=== PATIENT | male | born 2000 | race Caucasian/White ===

== ENCOUNTER 2021-01-10 05:48 | Emergency (ER) | payer MEDICAID ==
[~2021-01-10] VITALS: Ht 167.6 cm; Wt 64.0 kg
[2021-01-10 05:57] VITALS: BP 140/93
[2021-01-10] MEDS ORDERED: KETOROLAC 30 MG/ML VIAL IVP ONE (06:10)
[2021-01-10] MEDS ORDERED: NACL 0.9% 500 ML IV ONE (06:10)
--- NOTE | 2021-01-10 06:15 | NUR ---
PATIENT PRESENTS TO ED WITH L ELBOW PAIN . PT STATES 10/10 PAIN . DENIES N/V/D; SKIN IS PINK/WARM/DRY; AAOX4 WITH EVEN AND STEADY GAIT; LUNGS CLEAR BL; HR EVEN AND REGULAR; PT DENIES ANY FEVER, CP, SOB, OR COUGH AT THIS TIME; AT THIS TIME; VSS; PATIENT POSITIONED FOR COMFORT; HOB ELEVATED; BEDRAILS UP X2; BED DOWN. ER MD MADE AWARE OF PT STATUS. PMH: ASTHMA, HYPERTENSION, KIDNEY PROBLEMS NKA
[2021-01-10] MEDS ORDERED: LIDOCAINE 2% 1000 MG/50 ML VIAL INJ ONE (06:20)
[2021-01-10] MEDS ORDERED: VANCOMYCIN 1,000 MG in DEXTROSE 5% 250 ML IV ONE (06:25)
[2021-01-10] MEDS ORDERED: SULF-59 PO (06:37)
[2021-01-10] MEDS ORDERED: CEPH500C16 PO (06:37)
[2021-01-10] MEDS ORDERED: IBUP-2213 PO (06:37)
--- NOTE | 2021-01-10 07:15 | NUR ---
GIVEN REPORT TO ZHANNA MILES, FOR CONTINUITY OF CARE
--- NOTE | 2021-01-10 07:17 | NUR ---
REPORT RECEIVED FROM GINGER STEPHENS. TRANSFER OF CARE AT THIS TIME.
[2021-01-10] MEDS ORDERED: VANCOMYCIN 1,000 MG VIAL ONE (07:22)
--- NOTE | 2021-01-10 07:30 | NUR ---
PROVIDER AT BEDSIDE PERFORMING I&D.
--- NOTE | 2021-01-10 08:20 | NUR ---
PT RESTING IN LOWEST POSITION BED IN LOCKED POSITION, IN NO ACUTE DISTRESS.
--- NOTE | 2021-01-10 09:00 | NUR ---
EMT AT BEDSIDE PROVIDING WOUND CARE/DRESSING.
[2021-01-10 09:25] VITALS: BP 131/68
--- NOTE | 2021-01-10 09:25 | NUR ---
Patient discharged with v/s stable. Written and verbal after care instructions given and explained. Patient alert, oriented and verbalized understanding of instructions. Ambulatory with steady gait. All questions addressed prior to discharge. ID band removed. Patient advised to follow up with PMD. Rx of KEFLEX, IBUPROFEN, BACTRIM given. Patient educated on indication of medication including possible reaction and side effects. Opportunity to ask questions provided and answered.
== END 2021-01-10 09:25 | disposition home or self-care (01) ==
LOC: MED 05:48
DX: L02.512 Cutaneous abscess of left hand (principal); J45.909 Unspecified asthma, uncomplicated; F20.9 Schizophrenia, unspecified; F17.210 Nicotine dependence, cigarettes, uncomplicated; Z48.00 Encounter for change or removal of nonsurgical wound dressing
CPT/HCPCS: 26010; 36415; 73080; 73130; 87040; 87186; 90471; 90715; 96365; 96366; 96375; 99285; J1885; J2001; J3370; J7030; J7060

== ENCOUNTER 2021-03-23 04:23 | Emergency (ER) | payer MEDICAID, OTHER ==
[~2021-03-23] VITALS: Ht 172.7 cm; Wt 65.8 kg
[~2021-03-23 04:23] MED LIST: CEPH500C16 PO; IBUP-2213 PO; SULF-59 PO
[2021-03-23 04:30] VITALS: BP 133/100
== END 2021-03-23 05:00 | disposition home or self-care (01) ==
LOC: MED 04:23
DX: S61.219D Laceration without foreign body of unspecified finger without damage to nail, subsequent encounter (principal); J45.909 Unspecified asthma, uncomplicated; Z79.899 Other long term (current) drug therapy; X58.XXXD Exposure to other specified factors, subsequent encounter
CPT/HCPCS: 99281

== ENCOUNTER 2021-04-26 21:17 | Emergency (ER) | payer MEDICAID, OTHER ==
--- NOTE | 2021-04-26 21:47 | NUR ---
PATIENT CALLED TO BE TRIAGE , NO RESPONSE PATIENT LEFT WITHOUT BEING SEEN BY DR. MONTES. NO FURTHER CARE PROVIDED FOR PATIENT.
--- NOTE | 2021-04-26 21:55 | NUR ---
CALLED FOR THE SECOND TIME NO RESPONSE
--- NOTE | 2021-04-26 22:05 | NUR ---
CALLED FOR THE THIRD TIME , NO RESPONSE
== END 2021-04-26 21:47 | disposition left against medical advice (07) ==
LOC: MED 21:17
DX: Z53.21 Procedure and treatment not carried out due to patient leaving prior to being seen by health care provider (principal)

== ENCOUNTER 2021-04-27 00:38 | Emergency (ER) | payer MEDICAID ==
[~2021-04-27] VITALS: Ht 175.3 cm; Wt 65.8 kg
[2021-04-27 03:24] VITALS: BP 133/93
--- NOTE | 2021-04-27 03:24 | NUR ---
TO BED AMBULATORY
[2021-04-27] MEDS ORDERED: ACETAMINOPHEN EXTRA STRENGTH 500 MG TAB PO ONE (03:50)
--- NOTE | 2021-04-27 03:59 | NUR ---
PT C/O LOPEZ. PT STATES THAT HE TOOK DRUGS AND NOW HE DOESNT FEEL GOOD.
[2021-04-27 04:08] VITALS: BP 133/93
--- NOTE | 2021-04-27 04:08 | NUR ---
PT. LEFT WITHOUT D/C PAPERS.
== END 2021-04-27 04:08 | disposition home or self-care (01) ==
LOC: MED 00:38
DX: G44.209 Tension-type headache, unspecified, not intractable (principal); J45.909 Unspecified asthma, uncomplicated; Z79.899 Other long term (current) drug therapy
CPT/HCPCS: 99282

== ENCOUNTER 2021-06-16 03:50 | Emergency (ER) | payer MEDICAID ==
[~2021-06-16] VITALS: Ht 175.3 cm; Wt 65.8 kg
[2021-06-16 03:50] VITALS: BP 127/79
--- NOTE | 2021-06-16 03:50 | NUR ---
TO TENT AMBULATORY
--- NOTE | 2021-06-16 04:08 | NUR ---
SWAB FOR KEYUR SENT TO LAB
[2021-06-16] MEDS ORDERED: RISP0.5T3 PO (05:05)
[2021-06-16] MEDS: risperiDONE 1 MG TAB PO SCH (05:08)
[2021-06-16 05:12] VITALS: BP 127/79
--- NOTE | 2021-06-16 05:12 | NUR ---
Patient discharged with v/s stable. Written and verbal after care instructions given and explained. Patient alert, oriented and verbalized understanding of instructions. Ambulatory with steady gait. All questions addressed prior to discharge. ID band removed. Patient advised to follow up with PMD. Rx of RISPERDAL given. Patient educated on indication of medication including possible reaction and side effects. Opportunity to ask questions provided and answered.
== END 2021-06-16 05:12 | disposition home or self-care (01) ==
LOC: MED 03:50
DX: F20.9 Schizophrenia, unspecified (principal); Z20.822 Contact with and (suspected) exposure to COVID-19; Z76.0 Encounter for issue of repeat prescription; J45.909 Unspecified asthma, uncomplicated; Z79.899 Other long term (current) drug therapy
CPT/HCPCS: 99283

== ENCOUNTER 2021-09-09 19:55 | Emergency (ER) | payer MEDICAID, OTHER ==
[~2021-09-09] VITALS: Ht 177.8 cm; Wt 65.0 kg
[~2021-09-09 19:55] MED LIST changes: +RISP0.5T3 PO
[2021-09-09 20:20] VITALS: BP 109/70
--- NOTE | 2021-09-09 20:20 | NUR ---
to bed ambulatory
--- NOTE | 2021-09-09 20:35 | NUR ---
RECEIVED IN BED 12 WITH C/O HEADACHE X A COUPLE OF DAYS. DENIES PHOTOPHOBIA
[2021-09-09] MEDS ORDERED: IBUP-2213 PO (20:54)
[2021-09-09] MEDS ORDERED: IBUPROFEN 600 MG TAB PO ONE (20:55)
[2021-09-09] MEDS ORDERED: ONDANSETRON 4 MG ODT PO ONE (20:55)
[2021-09-09 21:32] VITALS: BP 109/70
== END 2021-09-09 21:35 | disposition home or self-care (01) ==
LOC: MED 19:55
DX: R51.9 Headache, unspecified (principal); R42 Dizziness and giddiness; R05.9 Cough, unspecified; R11.0 Nausea; F20.9 Schizophrenia, unspecified; J45.909 Unspecified asthma, uncomplicated; Z79.899 Other long term (current) drug therapy
CPT/HCPCS: 99283; Q0162

== ENCOUNTER 2021-10-14 16:23 | Emergency (ER) | payer OTHER ==
[~2021-10-14] VITALS: Ht 168.9 cm; Wt 67.6 kg
[2021-10-14 16:43] VITALS: BP 155/93
[2021-10-14] MEDS ORDERED: KETOROLAC 30 MG/ML VIAL IM ONE (17:45)
[2021-10-14 18:38] LABS: APPEARANCE,URINE CLEAR (CLEAR); BILIRUBIN,URINE NEGATIVE (NEGATIVE); BLOOD, URINE 3+ (NEGATIVE); COLOR,URINE YELLOW (YELLOW); LEUKOCYTE ESTERASE ,URINE NEGATIVE (NEGATIVE); NITRITE, URINE NEGATIVE (NEGATIVE); UGLUCOSE NEGATIVE (NEGATIVE)
[2021-10-14 19:06] LABS: RBC,URINE >100 /HPF (0-5); WBC,URINE 0-5 /HPF (0-5); YEAST,URINE Few /HPF (None Seen)
[2021-10-14] MEDS ORDERED: IBUP-2213 PO (19:37)
[2021-10-14] MEDS ORDERED: KETOROLAC 30 MG/ML VIAL ONE (19:44)
[2021-10-14 20:23] VITALS: BP 142/116
--- NOTE | 2021-10-14 20:26 | NUR ---
Patient discharged with v/s stable. Written and verbal after care instructions given FOR DYSURIA AND BLUNT ABD TRAUMA and explained. Patient alert, oriented and verbalized understanding of instructions. Ambulatory with steady gait. All questions addressed prior to discharge. ID band removed. Patient advised to follow up with PMD. Rx of MOTRIN given. Patient educated on indication of medication including possible reaction and side effects. Opportunity to ask questions provided and answered.
== END 2021-10-14 20:26 | disposition home or self-care (01) ==
LOC: MED 16:23
DX: S39.91XA Unspecified injury of abdomen, initial encounter (principal); R30.0 Dysuria; H61.21 Impacted cerumen, right ear; J45.909 Unspecified asthma, uncomplicated; F41.9 Anxiety disorder, unspecified; F20.9 Schizophrenia, unspecified; Z79.899 Other long term (current) drug therapy; X58.XXXA Exposure to other specified factors, initial encounter; Y93.89 Activity, other specified; Y92.89 Other specified places as the place of occurrence of the external cause; Y99.8 Other external cause status
CPT/HCPCS: 36415; 81001; 87491; 96372; 99283; J1885

== ENCOUNTER 2021-10-20 22:30 | Emergency (ER) | payer OTHER ==
[2021-10-21] MEDS ORDERED: ACETAMINOPHEN EXTRA STRENGTH 500 MG TAB PO ONE (01:25)
--- NOTE | 2021-10-21 01:45 | NUR ---
CALLED IN LOBBY NO ANSWER.
--- NOTE | 2021-10-21 01:53 | NUR ---
CALLED IN LOBBY NO ANSWER
--- NOTE | 2021-10-21 01:54 | NUR ---
PT IS NOT IN TENT
== END 2021-10-21 01:55 | disposition left against medical advice (07) ==
LOC: MED 22:30
DX: Z53.21 Procedure and treatment not carried out due to patient leaving prior to being seen by health care provider (principal)

== ENCOUNTER 2021-10-25 19:32 | Emergency (ER) | payer MEDICAID, OTHER ==
[~2021-10-25] VITALS: Ht 165.1 cm; Wt 59.0 kg
[2021-10-25 20:40] VITALS: BP 115/73
--- NOTE | 2021-10-25 20:43 | NUR ---
TO LOBBY A/W BED AMBULATORY
[2021-10-25] MEDS ORDERED: IBUP-2218 PO (22:42)
[2021-10-25 23:03] VITALS: BP 115/73
--- NOTE | 2021-10-25 23:03 | NUR ---
Patient discharged with v/s stable. Written and verbal after care instructions given and explained. Patient verbalized understanding. Ambulatory with steady gait. All questions addressed prior to discharge. Advised to follow up with PMD.
== END 2021-10-25 23:03 | disposition home or self-care (01) ==
LOC: MED 19:32
DX: M79.10 Myalgia, unspecified site (principal); J45.909 Unspecified asthma, uncomplicated; Z79.899 Other long term (current) drug therapy
CPT/HCPCS: 99281

== ENCOUNTER 2021-10-31 01:17 | Emergency (ER) | payer MEDICAID ==
[~2021-10-31] VITALS: Ht 177.8 cm; Wt 65.3 kg
[~2021-10-31 01:17] MED LIST changes: +IBUP-2218 PO
[2021-10-31 02:21] VITALS: BP 118/74
== END 2021-10-31 03:52 | disposition left against medical advice (07) ==
LOC: MED 01:17
DX: R10.10 Upper abdominal pain, unspecified (principal); R51.9 Headache, unspecified; R11.0 Nausea; Z53.21 Procedure and treatment not carried out due to patient leaving prior to being seen by health care provider

== ENCOUNTER 2021-11-01 16:30 | Emergency (ER) | payer MEDICAID ==
[~2021-11-01] VITALS: Ht 167.6 cm; Wt 61.7 kg
[2021-11-01 16:57] VITALS: BP 127/84
--- NOTE | 2021-11-01 18:36 | NUR ---
PT CALLED IN LOBBY AND OUTSIDE WITH NO ANSWER.
--- NOTE | 2021-11-01 19:30 | NUR ---
PT CALLED IN LOBBY AND OUTSIDE WITH NO ANSWER.
--- NOTE | 2021-11-01 20:08 | NUR ---
PT CALLED BY GLENN CHICAS WITH NO ANSWER. PATIENT LEFT WITHOUT BEING SEEN BY GLENN CHICAS. NO FURTHER CARE PROVIDED FOR PATIENT.
== END 2021-11-01 18:36 | disposition left against medical advice (07) ==
LOC: MED 16:30
DX: M79.671 Pain in right foot (principal); Z53.21 Procedure and treatment not carried out due to patient leaving prior to being seen by health care provider; W19.XXXA Unspecified fall, initial encounter; Y93.89 Activity, other specified; Y92.89 Other specified places as the place of occurrence of the external cause; Y99.8 Other external cause status

== ENCOUNTER 2021-11-06 19:32 | Emergency (ER) | payer MEDICAID ==
[~2021-11-06] VITALS: Ht 175.3 cm; Wt 73.9 kg
[2021-11-06 19:40] VITALS: BP 138/73
--- NOTE | 2021-11-06 19:43 | NUR ---
to lobby a/w bed ambulatory
--- NOTE | 2021-11-06 20:40 | NUR ---
Dr. Naylor examining patient.
[2021-11-06] MEDS ORDERED: OLAN15TA1 PO (20:41)
[2021-11-06] MEDS ORDERED: FLUO40CA6 PO (20:41)
[2021-11-06] MEDS ORDERED: RISP0.5T3 PO (20:41)
[2021-11-06] MEDS ORDERED: BACTO TP (20:42)
[2021-11-06] MEDS ORDERED: OMEP40EC24 PO (20:43)
[2021-11-06 21:05] VITALS: BP 138/73
--- NOTE | 2021-11-06 21:05 | NUR ---
Patient discharged with v/s stable. Written and verbal after care instructions given and explained. Patient alert, oriented and verbalized understanding of instructions. Ambulatory with steady gait. All questions addressed prior to discharge. ID band removed. Patient advised to follow up with PMD. Rx of prozac, bactroban, zyprexia, prilosec,resperdal given. Patient educated on indication of medication including possible reaction and side effects. Opportunity to ask questions provided and answered.
== END 2021-11-06 21:05 | disposition home or self-care (01) ==
LOC: MED 19:32
DX: F29 Unspecified psychosis not due to a substance or known physiological condition (principal); K21.9 Gastro-esophageal reflux disease without esophagitis; Z76.0 Encounter for issue of repeat prescription
CPT/HCPCS: 99281

== ENCOUNTER 2021-11-19 22:22 | Emergency (ER) | payer MEDICAID ==
[~2021-11-19] VITALS: Ht 167.6 cm; Wt 61.2 kg
[~2021-11-19 22:22] MED LIST changes: +BACTO TP; +FLUO40CA6 PO; +OLAN15TA1 PO; +OMEP40EC24 PO
[2021-11-19 22:40] VITALS: BP 132/81
[2021-11-19] MEDS ORDERED: IBUPROFEN 800 MG TAB PO ONE (23:10)
[2021-11-19] MEDS ORDERED: IBUP-2213 PO (23:11)
--- NOTE | 2021-11-20 00:25 | NUR ---
PT LEFT WITH OUT PAPERWORK
== END 2021-11-20 00:28 | disposition home or self-care (01) ==
LOC: MED 22:22
DX: M79.671 Pain in right foot (principal); M79.672 Pain in left foot; J45.909 Unspecified asthma, uncomplicated; Z79.899 Other long term (current) drug therapy
CPT/HCPCS: 99282

== ENCOUNTER 2022-01-06 04:30 | Emergency (ER) | payer MEDICAID, OTHER ==
[~2022-01-06] VITALS: Ht 177.8 cm; Wt 66.7 kg
[2022-01-06 04:36] VITALS: BP 141/90
--- NOTE | 2022-01-06 04:45 | NUR ---
Ambulatory to bed 8.
--- NOTE | 2022-01-06 04:52 | NUR ---
Dr. Nieto at bedside to exam patient.
[2022-01-06] MEDS ORDERED: AMOXIL/CLAVULANATE 875/125 MG 1 TAB PO ONE (04:55)
[2022-01-06] MEDS ORDERED: ONDANSETRON 4 MG ODT PO ONE (04:55)
[2022-01-06] MEDS ORDERED: ACETAMINOPHEN 325 MG TAB PO ONE (04:55)
[2022-01-06] MEDS ORDERED: IBUP-2213 PO (05:02)
[2022-01-06] MEDS ORDERED: AMOX1TAB8 PO (05:02)
[2022-01-06] MEDS ORDERED: LORA-1047 PO (05:02)
--- NOTE | 2022-01-06 05:15 | NUR ---
Patient discharged with v/s stable. Written and verbal after care instructions given and explained. Patient alert, oriented and verbalized understanding of instructions. Ambulatory with steady gait. All questions addressed prior to discharge. ID band removed. Patient advised to follow up with PMD. Rx of AMOXICILLIN IBUPROFEN LORATADINE given. Patient educated on indication of medication including possible reaction and side effects. Opportunity to ask questions provided and answered.
== END 2022-01-06 05:15 | disposition home or self-care (01) ==
LOC: MED 04:30
DX: J32.0 Chronic maxillary sinusitis (principal); J32.1 Chronic frontal sinusitis; B96.89 Other specified bacterial agents as the cause of diseases classified elsewhere; F17.200 Nicotine dependence, unspecified, uncomplicated; J45.909 Unspecified asthma, uncomplicated; Z79.899 Other long term (current) drug therapy
CPT/HCPCS: 99284; Q0162

== ENCOUNTER 2022-01-17 23:29 | Emergency (ER) | payer MEDICAID, OTHER ==
[~2022-01-17] VITALS: Ht 175.3 cm; Wt 63.5 kg
[~2022-01-17 23:29] MED LIST changes: +AMOX1TAB8 PO; -BACTO TP; -CEPH500C16 PO; -IBUP-2218 PO; +LORA-1047 PO; -SULF-59 PO
--- NOTE | 2022-01-17 23:35 | NUR ---
Dr. Mcnulty at triage to exam patient.
[2022-01-17 23:42] VITALS: BP 116/94
[2022-01-17 23:57] VITALS: BP 116/94
== END 2022-01-17 23:57 | disposition home or self-care (01) ==
LOC: MED 23:29
DX: S61.215A Laceration without foreign body of left ring finger without damage to nail, initial encounter (principal); W25.XXXA Contact with sharp glass, initial encounter; Y93.89 Activity, other specified; Y92.89 Other specified places as the place of occurrence of the external cause; Y99.8 Other external cause status
CPT/HCPCS: 99281